=== PATIENT | female | born 1950 | race Caucasian/White ===

== ENCOUNTER 2018-03-05 15:38 | Emergency (ER) | payer MEDICARE, MEDICAID ==
[2018-03-05 15:46] VITALS: BP 138/72
[2018-03-05] MEDS ORDERED: Al Hydrox/Mg Hydrox/Simet LIQ* 30 ML UDC PO ONE (16:05)
--- NOTE | 2018-03-05 16:09 | UC ---
Abdominal Pain Female HPI - HPI Summary HPI Summary: Patient states she has been having mid abdominal and epigastric pain for the past week. She took TUMS yesterday without relief. Patient states she has gained 10 lbs in the past 3-4 weeks and can feel some acid going up her throat. The pain does not change with activity. She mainly walks her dog and descends some stairs. Denies any vomiting/diarrhea/chills or fever. She states also having intermittent pain along left collarbone which is present when she walks. She has history of DM and HLD. - History of Current Complaint Chief Complaint: UCChestPain Stated Complaint: LEFT ARM PAIN, HEARTBURN Time Seen by Provider: 03/05/18 16:01 Hx Obtained From: Patient ?: No Onset/Duration: Gradual Onset, Lasting Weeks Severity Initially: Moderate Severity Currently: Moderate Pain Intensity: 5 Location: Epigastric, Other - mid abdominal Radiates: No Character: Burning Aggravating Factor(s): Food Alleviating Factor(s): Nothing Associated Signs and Symptoms: Positive: Negative Allergies/Adverse Reactions: Allergies Allergy/AdvReac Type Severity Reaction Status Date / Time vancomycin Allergy Difficulty Verified 03/05/18 15:48 Breathing PMH/Surg Hx/FS Hx/Imm Hx Previously Healthy: Yes Endocrine History: Diabetes, Dyslipidemia Psychological History: Depression - Surgical History Surgical History: None - Family History Known Family History: Positive: Diabetes - Social History Alcohol Use: None Substance Use Type: None Smoking Status (MU): Never Smoked Tobacco - Immunization History Most Recent Tetanus Shot: pt does not know Review of Systems Constitutional: Negative Skin: Negative Gastrointestinal: Abdominal Pain All Other Systems Reviewed And Are Negative: Yes Physical Exam Triage Information Reviewed: Yes Appearance: Well-Appearing, No Pain Distress, Obese Vital Signs: Initial Vital Signs Temp 97.3 F 03/05/18 15:42 Pulse 84 03/05/18 15:42 Resp 18 03/05/18 15:42 BP 138/72 03/05/18 15:42 Pulse Ox 96 03/05/18 15:42 Vital Signs Reviewed: Yes Eyes: Positive: Conjunctiva Clear Abd Pain Female Course/Dx - Course Course Of Treatment: EKG shows NSR with HR=84x'. Trial of maalox given to patient to which she responded. Start omeprazole as prescribed. f/u with PCP for diet control and adherence - Differential Dx/Diagnosis Provider Diagnoses: GERD Discharge - Sign-Out/Discharge Documenting (check all that apply): Patient Departure All imaging exams completed and their final reports reviewed: No Studies - Discharge Plan Condition: Stable Disposition: HOME Patient Education Materials: Gastroesophageal Reflux Disease (ED), Omeprazole ( By mouth), Weight Management (ED) Referrals: Bon Belle MD [Primary Care Provider] - - Billing Disposition and Condition Condition: STABLE Disposition: Home
== END 2018-03-05 16:36 | disposition home or self-care (01) ==
LOC: UCCORT 15:38
DX: K21.9 Gastro-esophageal reflux disease without esophagitis (principal); E11.9 Type 2 diabetes mellitus without complications; E78.5 Hyperlipidemia, unspecified; Z88.1 Allergy status to other antibiotic agents
CPT/HCPCS: 93005; 99202; A9270-GY; G0463